=== PATIENT | male | born 1995 | race Caucasian/White ===

== ENCOUNTER 2017-06-09 19:56 | Emergency (ER) | payer OTHER ==
[~2017-06-09] VITALS: Ht 188 cm; Wt 66.6 kg
[2017-06-09 20:09] VITALS: TEMP 36.4; Ht 188 cm; Wt 66.6 kg
[2017-06-09] MEDS ORDERED: XYLOCAINE 1%/SOD BICARB 20 ML VIAL INFIL ONE (20:45)
[2017-06-09] MEDS ORDERED: DIPHTHERIA/TETANUS/PERTUSSIS 0.5 ML SYR/VIAL IM. ONE (20:45)
[2017-06-09 22:52] VITALS: BP 115/73; PULSE 84; O2SAT 97
--- NOTE | 2017-06-10 01:26 | EMERGENCY ROOM VISIT NOTE ---
History First contact with patient: 20:27 Chief Complaint: LACERATION/CUT (SUT/DERMABOND) Stated Complaint: CUT TWO OF FINGERS Nursing Triage Summary: Lacerations to ring and middle fingers of left hand. Happened arounf 1840, pt cut on electric trimmer sawyer. Tetanus is not UTD History of Present Illness The patient is a 21 year old male who presents to the Emergency Room with complaints of lacerations on his left third and fourth fingers. The patient was using a trimmer sawyer when he showed off and try to set it down, cutting his fingers. The patient denies any significant bleeding, and rates his discomfort a 5 out of 10. The patient reports that his tetanus immunization is not up-to-date. The patient is [id number]. Review of Systems 6 system review was performed and was negative except for pertinent positives and negatives as indicated in history of present illness Past Medical/Surgical History Medical Problems: (1) No significant past medical history Surgical Problems: (1) No history of previous surgery Family History Unremarkable Social History Smoking Status: Current Every Day Smoker Alcohol Use: none Marital Status: single Occupation Status: unemployed Current/Historical Medications No Active Prescriptions or Reported Meds Physical Exam Vital Signs Date Time Temp Pulse Resp B/P (MAP) Pulse Ox O2 Delivery O2 Flow Rate FiO2 06/09/17 22:52 84 18 115/73 97 06/09/17 22:14 74 18 127/59 98 Room Air 06/09/17 20:09 36.4 91 18 145/84 97 Room Air Pain Rating (0-10): 7.0 Physical Exam CONSTITUTIONAL: Healthy and well nourished. Alert and oriented X 3 with positive affect. She does not appear in any acute distress or discomfort. HEENT: Normocephalic, atraumatic. Pupils equal, round and reactive. NECK: Full active range of motion without discomfort. MUSCULOSKELETAL: Examination of the left hand shows superficial macerated lacerations to the volar third and fourth fingers. There is no obvious soft tissue loss. The patient is able to flex and extend the fingers. Capillary refill is less than 2 seconds. INTEGUMENTARY: No rash or other significant dermatologic conditions noted. NEUROLOGIC: Left hand and fingers are sensory intact. Medical Decision & Procedures Medications Administered Medications (Trade) Dose Ordered Sig/Eris Route Start Time Stop Time Status Last Admin Dose Admin Diphtheria/ Pertussis/Tetanus Vacc (Adacel Inj) 0.5 ml ONCE ONCE IM. 06/09/17 20:45 06/09/17 20:46 DC 06/09/17 20:53 0.5 ML Procedure Laceration repair of the left third and fourth fingers was performed under digital block anesthesia after receiving verbal consent from the patient. Using buffered 1% lidocaine without epinephrine, good digital block anesthesia was administered. The peripheral tissue was cleansed with iodine, then the wounds were copiously pressure irrigated with normal saline. Exploration of the wounds does not show any foreign debris or concerns for tendon/vasculature/ nerve lacerations. The wounds were then grossly approximated using 5-0 nylon simple interrupted sutures. Estimated total laceration length repaired was 4 cm. Bacitracin dressings were applied. ED Course Patient history and physical exam were performed. Nurse's notes were reviewed. Vital signs were reviewed and were normal. Adacel was administered IM. Laceration repairs were performed under digital block anesthesia. The patient was provided additional verbal and written wound care instructions. Ice and elevation for swelling. Ibuprofen or Tylenol as needed for pain. Watch for any signs of infection, and suture removal in 12-14 days. The patient was happy with plan of care, and denied any pain at the conclusion of my exam. Medical Decision Medication Reconcilliation Current Medication List: was personally reviewed by me Blood Pressure Screening Patient's blood pressure: Normal blood pressure Impression Primary Impression: Laceration of multiple sites of left hand and fingers Departure Information Dispostion Home / Self-Care Condition GOOD Prescriptions No Active Prescriptions or Reported Meds Forms HOME CARE DOCUMENTATION FORM, IMPORTANT VISIT INFORMATION Patient Instructions My [facility] Additional Instructions Keep wound clean and dry. Do not allow any crusting or dried blood to accumulate on sutures. If this occurs, use a 1:1 solution of hydrogen peroxide/ water on a Q-tip to clean the wound. Use an antibiotic ointment for 3-4 days, then let wound dry. Suture removal in 12-14 days. Return sooner for any signs of infection (increasing redness, swelling, drainage). Ice and elevate for swelling and pain. Ibuprofen 600 mg and Tylenol 1000 mg every 6 hrs for pain. Problem Qualifiers Primary Impression: Laceration of multiple sites of left hand and fingers Encounter type: initial encounter Qualified Codes: S61.412A - Laceration without foreign body of left hand, initial encounter; S61.219A - Laceration without foreign body of unspecified finger without damage to nail, initial encounter
== END 2017-06-09 22:53 | disposition home or self-care (01) ==
LOC: C.EDB 19:58 → C.EDD 22:53
DX: S61.213A Laceration without foreign body of left middle finger without damage to nail, initial encounter (principal); S61.215A Laceration without foreign body of left ring finger without damage to nail, initial encounter; W29.3XXA Contact with powered garden and outdoor hand tools and machinery, initial encounter; F17.210 Nicotine dependence, cigarettes, uncomplicated; Z23 Encounter for immunization